=== PATIENT | male | born 1980 | race Hispanic/Latino ===

== ENCOUNTER → 2024-04-20 11:06 | Outpatient (CLI) | payer MEDICARE, MEDICAID, SELFPAY ==
[2024-04-20 12:08] LABS: Influenza A - CEPHEID Flu A NEGATIVE (NEGATIVE); Influenza B - CEPHEID Flu B NEGATIVE (NEGATIVE); Respiratory Syncytial Virus Negative (Negative)
[2024-04-20 12:28] LABS: COVID-19 CEPHEID 4-PLEX PCR Negative (Negative)
== END ==
LOC: LAB 11:10
PROVIDERS: Visit Provider Physician Assistant Medical
DX: R05.9 Cough, unspecified (principal); Z20.822 Contact with and (suspected) exposure to COVID-19
CPT/HCPCS: 0241U

== ENCOUNTER 2024-09-17 19:03 | Emergency (ER) | payer MEDICARE, MEDICAID, SELFPAY ==
[2024-09-17] VITALS (14 sets, daily range): BP systolic 111–149; BP diastolic 58–87; PULSE 67–83; RESP 14–34; TEMP 37.2; O2SAT 97–100; BMI 27.4
--- NOTE | 2024-09-17 19:20 | EKG_ITS ---
[address] [address] Test Date: 2024-09-17 Pat Name: Gaston Packer Department: [facility] Room: Gender: Male [employer]: DARI : 1980 Requested By: Order Number: [id number] Reading MD: Isrrael Amador Measurements Intervals [place] Rate: 72 P: 36 ID: 140 QRS: 14 QRSD: 96 T: 20 QT: 406 QTc: 444 Interpretive Statements Normal sinus rhythm Electronically Signed On 09-18-2024 8:30:47 PST by Isrrael Amador
--- NOTE | 2024-09-17 19:22 | ED_ITS ---
HPI - Overdose General Chief Complaint: Toxicology Problem Stated Complaint: mental health/OD Time Seen by Provider: 09/17/24 19:19 Source: patient and family Mode of arrival: Wheelchair History of Present Illness HPI Narrative: 43-year-old male had non accidental ingestion of about 20-30 Celexa 20 mg strength tablets at about 6:45 p.m. tonight, stating that he was trying to treat his right shoulder pain, not trying to hurt himself. He states that he had a fall injury 2 weeks ago, has had persisting right-sided shoulder since that time. No evaluation in clinic/healthcare system for the right shoulder pain. No other injuries or areas of pain. Family friend at bedside states that the patient is currently on parole, not known to have had thoughts of hurting himself, possible substance abuse in the past. Related Data Home Medications Medication Instructions Recorded Confirmed citalopram 20 mg tablet (Celexa) 20 mg PO DAILY 04/20/24 04/20/24 Allergies Allergy/AdvReac Type Severity Reaction Status Date / Time No Known Drug Allergies Allergy Verified 04/20/24 10:55 Patient History Social History Smoking Status: Current every day smoker Smoking Status: Current every day smoker Exam Narrative Exam Narrative: GENERAL:Well-developed patient, in mild distress. HEAD: Atraumatic. Normocephalic. EYES: Pupils equal round and reactive. Extraocular motions intact. No scleral icterus. No injection or drainage. ENT: Nose without bleeding, purulent drainage. Throat without erythema, tonsillar hypertrophy or exudate. Airway patent. NECK: Trachea midline. Non tender CARDIOVASCULAR: Regular rate and rhythm without murmurs, gallops, or rubs. RESPIRATORY: Clear to auscultation. Breath sounds equal bilaterally. No wheezes, rales, or rhonchi. GASTROINTESTINAL: Abdomen soft, non-tender, nondistended. EXTREMITIES: No edema or joint tenderness. No deformity right shoulder, no tenderness anterior lateral, no tenderness along trapezius or rhomboid, or along AC joint or clavicle. BACK: Nontender without deformity or crepitance. No flank tenderness. NEURO: AOx3. Motor functions grossly nonfocal SKIN: No rash or erythema of visible areas Initial Vital Signs Initial Vital Signs: Vital Signs Temperature 99 F 09/17/24 19:08 Pulse Rate 83 09/17/24 19:08 Respiratory Rate 14 09/17/24 19:08 Blood Pressure 149/85 H 09/17/24 19:08 Pulse Oximetry 100 09/17/24 19:08 Oxygen Delivery Method Room Air 09/17/24 19:08 Course Orders Ordered: ED Orders 09/18/24 06:02 Consult to SHINGLES ROOFER - [employer] Discontinued Medications Charcoal (Activated Charcoal 50 Gm/240 Ml) 50 gm PO NOW ONE Stop: 09/17/24 19:41 Last Admin: 09/17/24 19:49 Dose: 50 gm Documented By: Sodium Chloride (Normal Saline 0.9%) 1,000 mls @ 1,000 mls/hr IV BOLUS ONE Stop: 09/17/24 20:18 Last Infusion: 09/17/24 20:38 Dose: Infused Documented By: Admin: 09/17/24 19:48 Dose: 1,000 mls/hr Documented By: Vital Signs Vital signs: Vital Signs - 8 hr 09/18/24 06:30 09/18/24 07:00 09/18/24 07:19 Pulse Rate 74 62 Respiratory Rate 19 Blood Pressure 128/76 Pulse Oximetry 98 09/18/24 07:19 Pulse Rate 65 Respiratory Rate Blood Pressure Pulse Oximetry MDM - Overdose Lab Data Attestation: I reviewed the patient's lab results. Lab results narrative: White blood cell count 7900, hemoglobin 16.1, platelets adequate. Basic metabolic panel unremarkable. Liver functions normal. Ethanol, acetaminophen, salicylates negative. UDS pending. 09/17/24 19:20 09/17/24 19:20 Labs: Lab Results 09/17/24 Range/Units 19:20 WBC 7.9 (4.5-11.0) X10^3/uL RBC 5.27 (4.5-5.9) X10^6/uL Hgb 16.1 (13.5-17.5) g/dL Hct 46.9 (41-53) % MCV 89.0 (80-100) fL MCH 30.5 (26-34) PG MCHC 34.2 (30-36) % RDW 13.7 (11.6-14.8) % Plt Count 250 (150-400) X10^3/uL Neut % (Auto) 64.8 (50-75) % Lymph % (Auto) 26.4 (25-40) % [place] % (Auto) 6.8 (3-14) % Eos % (Auto) 1.1 L (2-4) % Baso % (Auto) 0.9 (0-2) % Neut # (Auto) 5100 (3350-7061) /uL Lymph # (Auto) 2100 (3089-0406) /uL [place] # (Auto) 500 (0-900) /uL Eos # (Auto) 100 (0-450) /uL Baso # (Auto) 100 (0-100) /uL Sodium 141 (137-145) mmol/L Potassium 3.8 (3.4-5.1) mmol/L Chloride 106 (98-107) mmol/L Carbon Dioxide 27 (22-32) mmol/L BUN 19 (9-20) mg/dL Creatinine 0.95 (0.66-1.25) mg/dL Estimated GFR > 60 (>60) mL/min BUN/Creatinine Ratio 20.0 (6-22) Glucose 82 (70-100) mg/dL Lactate 0.8 (0.7-2.1) mmol/L Calcium 9.2 (8.4-10.2) mg/dL Total Bilirubin 1.2 (0.2-1.3) mg/dL Conjugated Bilirubin 0.0 (0.0-0.3) md/dL Unconjugated Bilirubin 0.9 (0.0-1.1) mg/dL AST 30 (17-59) IU/L ALT 33 (<50) IU/L Alkaline Phosphatase 78 (38-126) U/L Total Protein 7.7 (6.3-8.2) g/dL Albumin 4.5 (3.5-5.0) g/dL Globulin 3.2 (1.7-4.1) g/dL Albumin/Globulin Ratio 1.4 (1.0-2.8) Salicylates < 1.0 (<20) mg/dL Acetaminophen < 10 (10-30) ug/mL Ethyl Alcohol < 10 ( - 10) mg/dL Point of Care Testing Glucose POC 82 Imaging Data Right shoulder x-ray series: Radiologist's Impression: [address] [address] XRay Report Signed Patient: Gaston Packer MR#: [id number] : 1980 Acct:[id number] Age/Sex: 43 / M Date of Service: 09/17/24 Loc: ED Accession Number: [id number] Procedure: XR shoulder RT min 2V Ordering Provider: Scout Covington MD PROCEDURE: XR SHOULDER RT MIN 2V INDICATIONS: right shoulder pain x2 weeks TECHNIQUE: 3 views of the shoulder were acquired. COMPARISON: None. FINDINGS: Bones: No fractures or dislocations. No suspicious bony lesions. Visualized ribs appear intact. Soft tissues: No suspicious soft tissue calcifications. IMPRESSION: No acute fracture dislocation of the right shoulder. Dictated by: Ray Rendon M.D. on 09/17/2024 at 21:28 Approved by: Ray Rendon M.D. on 09/17/2024 at 21:29 ECG Data Attestation: I personally reviewed and interpreted this ECG as follows: Interpretation: Normal sinus rhythm with rate of 72, no obvious ST segment elevation or depression changes. Normal intervals. FL 140, QRS 96, QTC 444. [facility] Narrative Medical decision making narrative: 43-year-old male with non accidental ingestion of Celexa tablets about 6:45 p.m.. Case was presented by nursing to poison control, who advised monitoring, treatment of seizures if they occur with benzodiazepines and then consult them if there are further seizures, cardiac monitoring for the next 8 hours until medically clear. Patient seems to be cooperative, hemodynamically stable. Screening EKG unremarkable intervals, normal sinus rhythm. Screening labs unremarkable. Observe on telemetry monitoring as above. We will obtain x-ray right shoulder, no gross deformity, neurovascularly intact. X-ray shoulder series no acute changes, see radiology report 0300, mild sedation toxicity has now passed, no seizure activity, no airway problems, patient medically cleared. Sleeping. Consider SHINGLES ROOFER consult when available later this morning. Further observe. 0600, patient awake and alert, says he has ambulated to the bathroom, no SI, aware x-ray shoulder reassuring, advised to use [id number] Tylenol and or Motrin for pain control, he would like to go home, no medical hold, still denies SI/HI symptoms, says he does not want to stay to talk to social media coordinator later this morning. He has a ride home. Discharged home with family/friends. Naloxone at Discharge Meets criteria for naloxone at discharge?: No Discharge Plan Departure Patient Disposition: Home Clinical Impression: Drug overdose, Pain in right shoulder Activity Restrictions/Additional Instructions: Right shoulder pain, prompting non accidental Celexa ingestion. Case discussed last night with poison control. Observation through 0300, without obvious toxicity severe, no seizure activity for example. This morning shoulder pain seems to be improved some. X-ray of the shoulder showed no acute changes. Trial of [id number] Motrin and/or ibuprofen advise for shoulder pain discomfort. Recheck symptoms advised with your regular provider in the next couple of days. Return to this/nearest emergency department for any change worsening symptoms or any concerns prior Prescriptions: No Action citalopram [Celexa] 20 mg tablet 20 mg PO DAILY Referrals: Miscellaneous,Doctor, MD [Primary Care Provider] - Stand Alone Forms: Patient Portal/API/Survey
[2024-09-17 19:26] LABS: Add Manual Diff / Slide Review NO; Basophils Absolute Auto 100 /uL (0-100); Basophils Percent Auto 0.9 % (0-2); Eosinophils Absolute Auto 100 /uL (0-450); Eosinophils Percent Auto 1.1 % (2-4); Hematocrit 46.9 % (41-53); Hemoglobin 16.1 g/dL (13.5-17.5); Lymphocytes Absolute Auto 2100 /uL (1100-4500); Lymphocytes Percent Auto 26.4 % (25-40); Mean Corpuscular HGB Conc 34.2 % (30-36); Mean Corpuscular Hemoglobin 30.5 PG (26-34); Monocytes Absolute Auto 500 /uL (0-900); Monocytes Percent Auto 6.8 % (3-14); Neutrophils Absolute Auto 5100 /uL (1500-7000); Neutrophils Percent Auto 64.8 % (50-75); Platelet Count 250 X10^3/uL (150-400); Red Blood Cell Count 5.27 X10^6/uL (4.5-5.9); Red Cell Distribution Width 13.7 % (11.6-14.8); White Blood Cell Count 7.9 X10^3/uL (4.5-11.0)
--- NOTE | 2024-09-17 19:31 | PC.NURSE ---
Poison control consult Talked to Ailyn, pharmacist at poison control. states as long as patient is alert with no risk of aspiration to give 1-2 grams on activated charcoal. Perform ekg looking for increase qtc prolongation >500. draw labes salicylate and tylenol level. states with celaxa at increased risk of seizures. Treat with benzos as needed and to call back if benzos are not working. states 8hr observation.
[2024-09-17 19:39] LABS: Acetaminophen < 10 ug/mL (10-30); Alanine Aminotransferase 33 IU/L (<50); Albumin 4.5 g/dL (3.5-5.0); Albumin Globulin Ratio 1.4 (1.0-2.8); Alkaline Phosphatase 78 U/L (38-126); Aspartate Aminotransferase 30 IU/L (17-59); Bilirubin Total 1.2 mg/dL (0.2-1.3); Bilirubin Unconjugated 0.9 mg/dL (0.0-1.1); Blood Urea Nitrogen 19 mg/dL (9-20); Calcium 9.2 mg/dL (8.4-10.2); Carbon Dioxide 27 mmol/L (22-32); Chloride 106 mmol/L (98-107); Estimated Glomerular Filt Rate > 60 mL/min (>60); Ethanol (ETOH) < 10 mg/dL; Globulin 3.2 g/dL (1.7-4.1); Glucose 82 mg/dL (70-100); HEMOLYSIS < 15 (0-50); Lactate (Lactic Acid) 0.8 mmol/L (0.7-2.1); Potassium 3.8 mmol/L (3.4-5.1); Salicylate < 1.0 mg/dL (<20); Sodium 141 mmol/L (137-145); Total Protein 7.7 g/dL (6.3-8.2)
[2024-09-17] MEDS: SODIUM CHLORIDE 0.9% 1,000 ML 1000 ML IV (19:48)
[2024-09-17] MEDS: ACTIVATED CHARCOAL 50 GM/240 ML PO (19:49)
--- NOTE | 2024-09-17 19:56 | PC.NURSE ---
Patient completed drinking charcoal
--- NOTE | 2024-09-17 20:37 | DI.RAD.S_ITS ---
PROCEDURE: XR SHOULDER RT MIN 2V INDICATIONS: right shoulder pain x2 weeks TECHNIQUE: 3 views of the shoulder were acquired. COMPARISON: None. FINDINGS: Bones: No fractures or dislocations. No suspicious bony lesions. Visualized ribs appear intact. Soft tissues: No suspicious soft tissue calcifications. IMPRESSION: No acute fracture dislocation of the right shoulder. Dictated by: Ray Rendon M.D. on 09/17/2024 at 21:28 Approved by: Ray Rendon M.D. on 09/17/2024 at 21:29
--- NOTE | 2024-09-17 20:42 | PC.NURSE ---
Patient sleeping comfortably at this time
--- NOTE | 2024-09-17 23:55 | PC.NURSE ---
Spoke with poison control and an up date was given
[2024-09-18] VITALS (18 sets, daily range): BP systolic 106–132; BP diastolic 56–77; PULSE 60–74; RESP 15–21; O2SAT 78–99
== END 2024-09-18 07:50 | disposition home or self-care (01) ==
PROVIDERS: Emergency Medicine; Emergency Provider Student in an Organized Health Care Education/Training Program
DX: T43.221A Poisoning by selective serotonin reuptake inhibitors, accidental (unintentional), initial encounter (principal); M25.511 Pain in right shoulder
CPT/HCPCS: 36415; 73030; 80053; 80076; 80320; 80329; 82962; 83605; 85025; 93005; 96360; 99284; G0480

== ENCOUNTER 2024-11-08 19:11 | Emergency (ER) | payer MEDICARE, MEDICAID, SELFPAY ==
[2024-11-08 19:18] VITALS: BP 163/79; PULSE 89; RESP 17; TEMP 36.6; O2SAT 99; BMI 29.4
[2024-11-08] MEDS: ONDANSETRON 4 MG ODT SL (20:51)
[2024-11-08 20:58] VITALS: BP 130/74; PULSE 86; RESP 19; TEMP 36.8; O2SAT 98
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
[2024-11-08] MEDS: ONDANSETRON 4 MG ODT PREPACK 1 BOTTLE MISC (22:14)
[2024-11-08] MEDS: CITALOPRAM 10 MG TABLET 30 MG PO (22:14)
[2024-11-08 22:16] VITALS: BP 130/87; PULSE 86; RESP 16; O2SAT 98
== END 2024-11-08 22:18 | disposition home or self-care (01) ==
PROVIDERS: Emergency Provider Student in an Organized Health Care Education/Training Program
DX: Z76.0 Encounter for issue of repeat prescription (principal); R11.0 Nausea
CPT/HCPCS: 99283; 99284

== ENCOUNTER 2024-11-11 14:24 | Emergency (ER) | payer MEDICARE, MEDICAID, OTHER, SELFPAY ==
[2024-11-11 14:26] VITALS: BP 130/73; PULSE 93; RESP 14; TEMP 36.4; O2SAT 94; BMI 23.7
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
[2024-11-11] MEDS: CITALOPRAM 10 MG TABLET 20 MG PO (14:58)
== END 2024-11-11 15:15 | disposition home or self-care (01) ==
PROVIDERS: Emergency Provider Emergency Medicine
DX: Z02.89 Encounter for other administrative examinations (principal); M79.645 Pain in left finger(s); F41.9 Anxiety disorder, unspecified
CPT/HCPCS: 99283